=== PATIENT | female | born 1975 | race Caucasian/White ===

== ENCOUNTER 2017-02-03 16:19 | Emergency (ER) | payer OTHER ==
[2017-02-03 17:51] LABS: Hematocrit 37 % (35-47); Hemoglobin 12.2 g/dl (12.0-16.0); Mean Corpuscular HGB Conc 33 g/dl (31-36); Mean Corpuscular Hemoglobin 27 pg (27-31); Mean Corpuscular Volume 83 fL (80-97); Mean Platelet Volume 9 um3 (7.4-10.4); Red Blood Count 4.48 10^6/ul (4.0-5.4); Red Cell Distribution Width 16 % (10.5-15); White Blood Count 11.2 10^3/ul (3.5-10.8)
[2017-02-03 18:21] LABS: Albumin 4.1 g/dL (3.2-5.2); BUN/Creatinine Ratio 10.6 (8-20); Calcium 9.7 mg/dL (8.6-10.3); EGFR African American 75.5 (>60); EGFR Non-African American 58.7 (>60); Globulin 3.2 g/dL (2-4); Magnesium 2.1 mg/dL (1.9-2.7); Potassium 4.1 mmol/L (3.5-5.0); Total Bilirubin 0.5 mg/dL (0.2-1.0); Total Protein 7.3 g/dL (6.4-8.9)
--- NOTE | 2017-02-03 18:33 | RAD ---
HISTORY: Seizure COMPARISONS: None TECHNIQUE: Multiple contiguous axial CT scans were obtained of the head without intravenous contrast. FINDINGS: HEMORRHAGE/INFARCT: There is no hemorrhage or acute infarct. MASSES/SHIFT: There is no mass or shift. EXTRA-AXIAL SPACES: There are no extra-axial fluid collections. SULCI AND VENTRICLES: The sulci and ventricles are normal in size and position for the patient's stated age. CEREBRUM: There are no focal parenchymal abnormalities. BRAINSTEM: There are no focal parenchymal abnormalities. CEREBELLUM: There are no focal parenchymal abnormalities. VESSELS: The vessels are grossly normal. PARANASAL SINUSES: There is mucosal thickening of the left maxillary sinus. ORBITS: The orbits are unremarkable. BONES AND SOFT TISSUE: No bone or soft tissue abnormalities are noted. OTHER: None IMPRESSION: NO ACUTE INTRACRANIAL PATHOLOGY.
--- NOTE | 2017-02-03 18:54 | ED ---
Everardo Merino Alfonso scribed for Caridad Caicedo MD on 02/03/17 at 1704 . Complex/Multi-Sys Presentation - HPI Summary HPI Summary: This patient is a 41 year old F BIBA to [facility] accompanied by family with a chief complaint of a possible seizure approximately one hour ago while at [facility]. This was witnessed by her psychiatrist. She started a Wellbutrin prescription approximately 5 days ago. The patient rates the pain 0/10 in severity. Symptoms alleviated by spontaneous resolution. Patient reports a headache. Patient denies ETOH withdrawal and pain. - History Of Current Complaint Chief Complaint: EDSeizure Time Seen by Provider: 02/03/17 16:49 Hx Obtained From: Patient Onset/Duration: Sudden Onset, Resolved Timing: Constant Severity Currently: None Alleviating Factor(s): spontaneous resolution Associated Signs And Symptoms: Positive: Other - headache. Patient denies ETOH withdrawal and pain. - Allergies/Home Medications Allergies/Adverse Reactions: Allergies Allergy/AdvReac Type Severity Reaction Status Date / Time No Known Allergies Allergy Verified 02/03/17 16:23 PMH/Surg Hx/FS Hx/Imm Hx Endocrine/Hematology History: Denies: Hx Diabetes, Hx Thyroid Disease Cardiovascular History: Denies: Hx Hypertension Respiratory History: Denies: Hx Asthma, Hx Chronic Obstructive Pulmonary Disease (COPD) GI History: Denies: Hx Ulcer Psychiatric History: Reports: Hx Anxiety - Abilify, Hx Depression - Cymbalta, Hx Substance Abuse - hx hydrocodone and etoh abuse Infectious Disease History: No Infectious Disease History: Denies: Hx Hepatitis, Hx Human Immunodeficiency Virus (HIV), History Other Infectious Disease, Traveled Outside the [place] in Last 30 Days - Family History Known Family History: Negative: Hypertension, Diabetes - Social History Alcohol Use: None Substance Use Type: Reports: None Smoking Status (MU): Light Every Day Tobacco Smoker Type: Cigarettes Amount Used/How Often: 7-10 per day Length of Time of Smoking/Using Tobacco: 10 years Have You Smoked in the Last Year: Yes Review of Systems Negative: Fever Neurological: Other - Seizure, headache; negative ETOH withdrawal and pain All Other Systems Reviewed And Are Negative: Yes Physical Exam - Summary Physical Exam Summary: General: Well appearing, no pain distress Skin: Warm, Skin Color Reflects Adequate Perfusion, Dry Eyes: EOMI, BERNARDA ENT: Pharynx normal, TMs normal Neck: Supple, nontender Respiratory: CTA, breath sounds present, no rhonchi, no wheezes, no rales Cardiovascular: RRR, no murmur, no rub, no gallop Abdomen: Soft, nontender, Non-distended, no guarding, no rebound Bowel: Present Musculoskeletal: MAIRA, No edema Neuro: Sensory/motor intact, A&Ox3, CN intact 2-12 Psych: Affect/mood appropriate Triage Information Reviewed: Yes Vital Signs On Initial Exam: Initial Vitals Temp Pulse Resp BP Pulse Ox 98.0 F 126 16 105/95 100 02/03/17 16:20 02/03/17 16:20 02/03/17 16:20 02/03/17 16:20 02/03/17 16:20 Vital Signs Reviewed: Yes - [place] Coma Scale Best Eye Response: 4 - Spontaneous Best Motor Response: 6 - Obeys Commands Best Verbal Response: 5 - Oriented Coma Scale Total: 15 Diagnostics - Vital Signs Vital Signs Temp Pulse Resp BP Pulse Ox 02/03/17 16:23 128 95 02/03/17 16:22 150/95 02/03/17 16:20 98.0 F 126 16 105/95 100 - Laboratory Lab Results: Lab Results 02/03/17 02/03/17 Range/Units 17:39 17:39 WBC 11.2 H (3.5-10.8) 10^3/ul RBC 4.48 (4.0-5.4) 10^6/ul Hgb 12.2 (12.0-16.0) g/dl Hct 37 (35-47) % MCV 83 (80-97) fL MCH 27 (27-31) pg MCHC 33 (31-36) g/dl RDW 16 H (10.5-15) % Plt Count 258 (150-450) 10^3/ul MPV 9 (7.4-10.4) um3 Neut % (Auto) 77.7 (38-83) % Lymph % (Auto) 11.5 L (25-47) % [place] % (Auto) 6.2 (1-9) % Eos % (Auto) 3.9 (0-6) % Baso % (Auto) 0.7 (0-2) % Absolute Neuts (auto) 8.7 H (1.5-7.7) 10^3/ul Absolute Lymphs (auto) 1.3 (1.0-4.8) 10^3/ul Absolute Monos (auto) 0.7 (0-0.8) 10^3/ul Absolute Eos (auto) 0.4 (0-0.6) 10^3/ul Absolute Basos (auto) 0.1 (0-0.2) 10^3/ul Absolute Nucleated RBC 0 10^3/ul Nucleated RBC % 0 Sodium 136 (133-145) mmol/L Potassium 4.1 (3.5-5.0) mmol/L Chloride 103 (101-111) mmol/L Carbon Dioxide 25 (22-32) mmol/L Anion Gap 8 (2-11) mmol/L BUN 11 (6-24) mg/dL Creatinine 1.04 H (0.51-0.95) mg/dL Est GFR ( Amer) 75.5 (>60) Est GFR (Non-Af Amer) 58.7 (>60) BUN/Creatinine Ratio 10.6 (8-20) Glucose 101 H (70-100) mg/dL Calcium 9.7 (8.6-10.3) mg/dL Magnesium 2.1 (1.9-2.7) mg/dL Total Bilirubin 0.50 (0.2-1.0) mg/dL AST 20 (13-39) U/L ALT 18 (7-52) U/L Alkaline Phosphatase 70 (34-104) U/L Total Protein 7.3 (6.4-8.9) g/dL Albumin 4.1 (3.2-5.2) g/dL Globulin 3.2 (2-4) g/dL Albumin/Globulin Ratio 1.3 (1-3) Result Diagrams: 02/03/17 17:39 02/03/17 17:39 Lab Statement: Any lab studies that have been ordered have been reviewed, and results considered in the medical decision making process. - CT Brain CT Interpretation Completed By: Radiologist - NO ACUTE INTRACRANIAL PATHOLOGY. ED physician has reviewed this radiology report and agrees. - EKG 1721 Cardiac Rate: Tachycardia - BPM 107 EKG Rhythm: Sinus Tachycardia EKG Interpretation: NAC Re-Evaluation - Re-Evaluation First Eval Re-Evaluation Time: 17:36 Comment: She admits to having snorted her Wellbutrin. Complex Multi-Symp Course/Dx Course Of Treatment: 41 yo female who had a witnessed seizure today who admits to snorting her wellbutrin. Pt understands it is likely the welbutrin causing the seizure and that she needs to come off. close f/u with pmd - Diagnoses Provider Diagnoses: Seizure Discharge - Discharge Plan Condition: Stable Disposition: HOME Patient Education Materials: New-Onset Seizure in Adults (ED) Referrals: Bandar Olsen MD [Primary Care Provider] - 3 Days Additional Instructions: RETURN TO THE EMERGENCY DEPARTMENT FOR CHANGING OR WORSENING SYMPTOMS. STOP TAKING WELLBUTRIN. The documentation as recorded by the Everardo chavira Alfonso accurately reflects the service I personally performed and the decisions made by me, Caridad Caicedo MD.
[2017-02-03 19:34] VITALS: BP 134/86
== END 2017-02-03 19:42 | disposition home or self-care (01) ==
LOC: ED 16:19
DX: R56.9 Unspecified convulsions (principal); R51 Headache; F17.210 Nicotine dependence, cigarettes, uncomplicated
CPT/HCPCS: 36415; 70450; 80053; 83735; 85025; 93005; 99282

== ENCOUNTER 2017-08-18 17:42 | Emergency (ER) | payer OTHER ==
[2017-08-18 18:43] LABS: ABS Basophils 0 10^3/ul (0-0.2); ABS Eosinophils 0.2 10^3/ul (0-0.6); ABS Lymphocytes 1.7 10^3/ul (1.0-4.8); ABS Monocytes 0.8 10^3/ul (0-0.8); ABS Neutrophils 6.9 10^3/ul (1.5-7.7); ABS Nucleated RBC 0 10^3/ul; Eosinophil % 2.4 % (0-6); Hematocrit 36 % (35-47); Hemoglobin 12.2 g/dl (12.0-16.0); Lymphocyte % 17.2 % (25-47); Mean Corpuscular HGB Conc 34 g/dl (31-36); Mean Corpuscular Hemoglobin 28 pg (27-31); Mean Corpuscular Volume 84 fL (80-97); Mean Platelet Volume 8.5 um3 (7.4-10.4); Nucleated Red Blood Cells % 0.1; Platelet Count 250 10^3/ul (150-450); Red Blood Count 4.33 10^6/ul (4.0-5.4); Red Cell Distribution Width 17 % (10.5-15); White Blood Count 9.7 10^3/ul (3.5-10.8)
[2017-08-18 18:51] LABS: INR 1.01 (0.77-1.02)
[2017-08-18 19:00] LABS: EGFR Non-African American 53.6 (>60)
--- NOTE | 2017-08-18 19:22 | RAD ---
INDICATION: Seizure COMPARISON: CT brain February 03, 2017 TECHNIQUE: Noncontrast axial source images were acquired from the skull base to the vertex. FINDINGS: Ventricles/sulci: The ventricles and cisterns are normal in size and configuration for age. Brain parenchyma: There is no focal parenchymal finding, evidence of intracranial mass, or intracranial mass effect. Intracranial hemorrhage:None. Extra-axial spaces: There are no abnormal extra axial fluid collections or evidence of extra-axial mass. Calvarium: There is no calvarial fracture or other calvarial abnormality. Scalp: There is left frontal scalp hematoma. Paranasal sinuses/mastoid: The paranasal sinuses and mastoid air cells are clear. Other: None. IMPRESSION: LEFT FRONTAL SCALP HEMATOMA, OTHERWISE NEGATIVE.
--- NOTE | 2017-08-18 19:24 | RAD ---
INDICATION: Seizure. Possible neck injury COMPARISON: None TECHNIQUE: Noncontrast axial source images was performed from the skull base to the thoracic inlet. Coronal and and sagittal reformatted images were generated. FINDINGS: Vertebrae: There is no fracture or acute focal bony lesion. There are arthritic changes with anterior vertebral spurring and uncinate process spurring at C5-C7. There is also minor disc space narrowing at C5-C6 and C6-C7. Alignment: The craniocervical junction appears normal. The cervical vertebrae are normally aligned. Central Canal: There are no significant CT abnormalities of the central canal or foramina. There is minor bilateral foraminal encroachment at the C5-C7 levels MR imaging is a more sensitive method to evaluate the canal and foramina. Intervertebral disc spaces: The remaining disc spaces are maintained. Brain: The visualized brain appears unremarkable. Soft tissues: The visualized soft tissue elements of the neck are unremarkable. The prevertebral soft tissues appear normal. The lung apices are clear. IMPRESSION: MILD MID CERVICAL OSTEOARTHRITIC CHANGE, OTHERWISE NEGATIVE
[2017-08-18 19:25] LABS: Urine Appearance Clear; Urine Blood Negative (Negative); Urine Color Yellow; Urine Ketones Trace (Negative); Urine Protein 2+(100 mg/dL) (Negative); Urine Specific Gravity 1.027 (1.010-1.030); Urine Urobilinogen Negative (Negative)
--- NOTE | 2017-08-18 19:29 | RAD ---
INDICATION: Seizure. Facial injury COMPARISON: None TECHNIQUE: Axial source images were acquired from the vertex of the mandible through the orbits. Coronal and sagittal reconstructed images were acquired. FINDINGS: Bones: There are mildly displaced fractures of the anterior nasal bones. No other facial bone fractures are seen. Orbits: The globes and intraconal structures appear intact. The optic nerves are symmetric. Extraocular muscles appear normal. There is no intraconal inflammatory change or retrobulbar mass.. Paranasal sinuses: There is lobular and/or circumferential mucosal thickening involving the left and right maxillary antrum. There is opacification of multiple ethmoid air cells. There is minor mucosal thickening involving the frontal air cells. There is occlusion left ostial complex with mild swelling of nasal turbinates. There are no air-fluid levels. The findings are compatible with mild chronic sinusitis. Brain: There are no acute abnormalities of the visualized brain parenchyma. Soft tissues: There is left frontal scalp hematoma. Other: None The visualized soft tissue elements about the neck appear normal. IMPRESSION: 1. Mildly displaced fractures of the anterior nasal bones. 2. Findings of chronic sinusitis. 3. Left frontal scalp hematoma
[2017-08-18] MEDS ORDERED: Amoxicillin PO (*) 875 MG TAB PO ONE (21:03)
[2017-08-18] MEDS ORDERED: Tetan/Diph/Pertus SYR(Tdap)* 0.5 ML SYR(BOOSTRIX) use SYR IM ONE (21:30)
[2017-08-18] MEDS ORDERED: Mupirocin 2% OINT* TUBE TOPICAL SCH (21:30)
--- NOTE | 2017-08-18 21:38 | ED ---
Willem Merino Jennifer, scribed for Vasu Davila MD on 08/18/17 at 1812 . 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 The patients states they were in the [employer] when she suddenly fell on her face. When he picked her up she began seizing, and it lasted for about one minute. The patient states there was LOC. The patient complains of face pain, back pain, and neck pain. She denies dental pain, arm pain, and leg pain. - History of Current Complaint Chief Complaint: EDSeizure Stated Complaint: FALL Time Seen by Provider: 08/18/17 18:03 Hx Obtained From: Patient, Family/Edge Inker - Hx Last Menstrual Period: HAS PERIOD NOW Onset/Duration: Sudden Onset, Resolved, Other - OPERATIONS CONTROLLER Timing: Sudden Onset - one minute Onset Severity: Moderate Current Severity: None Seizure Severity: Moderate Neurological Deficit Location: Generalized Pain Intensity: 6 Pain Scale Used: 0-10 Numeric Character: Other: - face pain, back pain, neck pain. NEGATIVE: dental pain, arm pain, leg pain Syncope Context: Witnessed, Loss of Consciousness: Yes, Associated Head Trauma Seizure Character: Generalized Aggravating: Nothing Alleviating: Nothing Associated Signs and Symptoms: Positive: Negative - dental, arm, and leg pain, Pain - neck and back pain - Allergy/Home Medications Allergies/Adverse Reactions: Allergies Allergy/AdvReac Type Severity Reaction Status Date / Time No Known Allergies Allergy Verified 02/03/17 16:23 Home Medications: Home Medications Gabapentin CAP(*) [Neurontin 400 mg CAP(*)] 800 mg PO QID 08/18/17 [History Confirmed 08/18/17] Lurasidone(*) [Latuda] 40 mg PO QPM 08/18/17 [History Confirmed 08/18/17] buPROPion SR TAB* [Wellbutrin SR TAB*] 150 mg PO BID 08/18/17 [History Confirmed 08/18/17] PMH/Surg Hx/FS Hx/Imm Hx Endocrine/Hematology History: Denies: Hx Diabetes, Hx Thyroid Disease Cardiovascular History: Denies: Hx Hypertension Respiratory History: Denies: Hx Asthma, Hx Chronic Obstructive Pulmonary Disease (COPD) GI History: Denies: Hx Ulcer Psychiatric History: Reports: Hx Anxiety - Abilify, Hx Depression - Cymbalta, Hx Substance Abuse - hx hydrocodone and etoh abuse Infectious Disease History: No Infectious Disease History: Denies: Hx Hepatitis, Hx Human Immunodeficiency Virus (HIV), History Other Infectious Disease, Traveled Outside the [place] in Last 30 Days - Family History Known Family History: Negative: Hypertension, Diabetes - Social History Alcohol Use: None Alcohol Amount: stopped April Substance Use Type: Reports: None Substance Use Comment - Amount & Last Used: snorts wellbutrin, crack pipe noted in bra Smoking Status (MU): Light Every Day Tobacco Smoker Type: Cigarettes Amount Used/How Often: 7-10 per day Length of Time of Smoking/Using Tobacco: 10 years Have You Smoked in the Last Year: Yes Review of Systems Negative: Dental Pain Musculoskeletal: Negative - Arm and leg pain Positive: Myalgia - face pain, back pain, neck pain Positive: Other - laceration on forehead Neurological: Other - Seizure, LOC All Other Systems Reviewed And Are Negative: Yes Physical Exam - Summary Physical Exam Summary: General: well-appearing, no pain distress Skin: warm, color reflects adequate perfusion, dry Head: 2cm laceration on the medial aspect of the upper left orbit Eyes: EOMI, BERNARDA ENT: normal Neck: supple, nontender Respiratory: CTA, breath sounds present Cardiovascular: RRR Abdomen: soft, nontender Bowel: present Musculoskeletal: normal, strength/ROM intact Neurological: sensory/motor intact, A&O x3 Psychological: affect/mood appropriate Triage Information Reviewed: Yes Vital Signs On Initial Exam: Initial Vitals Temp Pulse Resp BP Pulse Ox 97.7 F 110 20 148/104 96 08/18/17 17:59 08/18/17 17:59 08/18/17 17:59 08/18/17 17:59 08/18/17 17:59 Vital Signs Reviewed: Yes Procedures - Laceration/Wound Repair 1 Location: head Description: Linear Anesthesia: 1.0%, Lido Length, Depth and Shape: 2cm laceration on the medial aspect of the upper left orbit Betadine Prep?: No Laceration/Wound Explored: clean Suture Type: Chromic - 6-0 Proline Number of Sutures: 3 Sterile Dressing Applied?: Yes Diagnostics - Vital Signs Vital Signs Temp Pulse Resp BP Pulse Ox 08/18/17 17:59 97.7 F 110 20 148/104 96 - Laboratory Lab Results: Lab Results 08/18/17 08/18/17 08/18/17 Range/Units 18:32 18:32 18:34 WBC 9.7 (3.5-10.8) 10^3/ul RBC 4.33 (4.0-5.4) 10^6/ul Hgb 12.2 (12.0-16.0) g/dl Hct 36 (35-47) % MCV 84 (80-97) fL MCH 28 (27-31) pg MCHC 34 (31-36) g/dl RDW 17 H (10.5-15) % Plt Count 250 (150-450) 10^3/ul MPV 8.5 (7.4-10.4) um3 Neut % (Auto) 71.4 (38-83) % Lymph % (Auto) 17.2 L (25-47) % [place] % (Auto) 8.6 H (0-7) % Eos % (Auto) 2.4 (0-6) % Baso % (Auto) 0.4 (0-2) % Absolute Neuts (auto) 6.9 (1.5-7.7) 10^3/ul Absolute Lymphs (auto) 1.7 (1.0-4.8) 10^3/ul Absolute Monos (auto) 0.8 (0-0.8) 10^3/ul Absolute Eos (auto) 0.2 (0-0.6) 10^3/ul Absolute Basos (auto) 0 (0-0.2) 10^3/ul Absolute Nucleated RBC 0 10^3/ul Nucleated RBC % 0.1 INR (Anticoag Therapy) 1.01 (0.77-1.02) APTT 21.2 L (26.0-36.3) seconds Sodium 137 L (139-145) mmol/L Potassium 4.0 (3.5-5.0) mmol/L Chloride 107 (101-111) mmol/L Carbon Dioxide 23 (22-32) mmol/L Anion Gap 7 (2-11) mmol/L BUN 13 (6-24) mg/dL Creatinine 1.12 H (0.51-0.95) mg/dL Est GFR ( Amer) 68.9 (>60) Est GFR (Non-Af Amer) 53.6 (>60) BUN/Creatinine Ratio 11.6 (8-20) Glucose 112 H (70-100) mg/dL Calcium 9.0 (8.6-10.3) mg/dL Magnesium 2.1 (1.9-2.7) mg/dL Total Bilirubin 0.30 (0.2-1.0) mg/dL AST 33 (13-39) U/L ALT 20 (7-52) U/L Alkaline Phosphatase 61 (34-104) U/L Total Protein 7.1 (6.4-8.9) g/dL Albumin 4.2 (3.2-5.2) g/dL Globulin 2.9 (2-4) g/dL Albumin/Globulin Ratio 1.4 (1-3) Lipase 15 (11.0-82.0) U/L TSH 2.57 (0.34-5.60) mcIU/mL Beta HCG, Quant < 0.60 mIU/mL Urine Color Urine Appearance Urine pH (5-9) Ur Specific [place] (1.010-1.030) Urine Protein (Negative) Urine Ketones (Negative) Urine Blood (Negative) Urine Nitrate (Negative) Urine Bilirubin (Negative) Urine Urobilinogen (Negative) Ur Leukocyte Esterase (Negative) Urine WBC (Auto) (Absent) Urine RBC (Auto) (Absent) Ur Squamous Epith Cells (Absent) Urine Bacteria (Absent) Hyaline Casts (Absent) Urine Glucose (Negative) Urine Ascorbic Acid (Negative) Salicylates < 2.50 (<30) mg/dL Urine Opiates Screen (None Detect) Acetaminophen < 15 mcg/mL Ur Barbiturates Screen (None Detect) Ur Phencyclidine Scrn (None Detect) Ur Amphetamines Screen (None Detect) U Benzodiazepines Scrn (None Detect) Urine Cocaine Screen (None Detect) U Cannabinoids Screen (None Detect) Serum Alcohol < 10 (<10) mg/dL 08/18/17 08/18/17 Range/Units 19:06 19:06 WBC (3.5-10.8) 10^3/ul RBC (4.0-5.4) 10^6/ul Hgb (12.0-16.0) g/dl Hct (35-47) % MCV (80-97) fL MCH (27-31) pg MCHC (31-36) g/dl RDW (10.5-15) % Plt Count (150-450) 10^3/ul MPV (7.4-10.4) um3 Neut % (Auto) (38-83) % Lymph % (Auto) (25-47) % [place] % (Auto) (0-7) % Eos % (Auto) (0-6) % Baso % (Auto) (0-2) % Absolute Neuts (auto) (1.5-7.7) 10^3/ul Absolute Lymphs (auto) (1.0-4.8) 10^3/ul Absolute Monos (auto) (0-0.8) 10^3/ul Absolute Eos (auto) (0-0.6) 10^3/ul Absolute Basos (auto) (0-0.2) 10^3/ul Absolute Nucleated RBC 10^3/ul Nucleated RBC % INR (Anticoag Therapy) (0.77-1.02) APTT (26.0-36.3) seconds Sodium (139-145) mmol/L Potassium (3.5-5.0) mmol/L Chloride (101-111) mmol/L Carbon Dioxide (22-32) mmol/L Anion Gap (2-11) mmol/L BUN (6-24) mg/dL Creatinine (0.51-0.95) mg/dL Est GFR ( Amer) (>60) Est GFR (Non-Af Amer) (>60) BUN/Creatinine Ratio (8-20) Glucose (70-100) mg/dL Calcium (8.6-10.3) mg/dL Magnesium (1.9-2.7) mg/dL Total Bilirubin (0.2-1.0) mg/dL AST (13-39) U/L ALT (7-52) U/L Alkaline Phosphatase (34-104) U/L Total Protein (6.4-8.9) g/dL Albumin (3.2-5.2) g/dL Globulin (2-4) g/dL Albumin/Globulin Ratio (1-3) Lipase (11.0-82.0) U/L TSH (0.34-5.60) mcIU/mL Beta HCG, Quant mIU/mL Urine Color Yellow Urine Appearance Clear Urine pH 5.0 (5-9) Ur Specific [place] 1.027 (1.010-1.030) Urine Protein 2+(100 mg/dl) A (Negative) Urine Ketones Trace A (Negative) Urine Blood Negative (Negative) Urine Nitrate Negative (Negative) Urine Bilirubin Negative (Negative) Urine Urobilinogen Negative (Negative) Ur Leukocyte Esterase Negative (Negative) Urine WBC (Auto) Absent (Absent) Urine RBC (Auto) Absent (Absent) Ur Squamous Epith Cells Present A (Absent) Urine Bacteria Absent (Absent) Hyaline Casts Present A (Absent) Urine Glucose Negative (Negative) Urine Ascorbic Acid * A (Negative) Salicylates (<30) mg/dL Urine Opiates Screen None detected (None Detect) Acetaminophen mcg/mL Ur Barbiturates Screen None detected (None Detect) Ur Phencyclidine Scrn None detected (None Detect) Ur Amphetamines Screen Presumptive positive A (None Detect) U Benzodiazepines Scrn None detected (None Detect) Urine Cocaine Screen None detected (None Detect) U Cannabinoids Screen None detected (None Detect) Serum Alcohol (<10) mg/dL Result Diagrams: 08/18/17 18:32 08/18/17 18:34 Lab Statement: Any lab studies that have been ordered have been reviewed, and results considered in the medical decision making process. - CT Brain CT CT Interpretation: No Acute Changes - LEFT FRONTAL SCALP HEMATOMA, OTHERWISE NEGATIVE. Dr. Davila has reviewed this report. CT Interpretation Completed By: Radiologist C-Spine CT CT Interpretation: No Acute Changes - MILD MID CERVICAL OSTEOARTHRITIC CHANGE, OTHERWISE NEGATIVE. Dr. Davila has reviewed this report. CT Interpretation Completed By: Radiologist Maxillofacial CT CT Interpretation: Positive (See Comments) - 1. Mildly displaced fractures of the anterior nasal bones. 2. Findings of chronic sinusitis. 3. Left frontal scalp hematoma. Dr. Davila has reviewed this report. CT Interpretation Completed By: Radiologist - EKG 1833 Cardiac Rate: Tachycardia EKG Rhythm: Sinus Tachycardia - [address] Segment: Normal Ectopy: None Course/Dx - Course Course Of Treatment: I DISCUSSED KEEPING THE FACIAL LACERATION AND ABRASION MOIST WITH ANTIBIOTIC OINTMENT TO MINIMIZE SCARRING. RX AMOX DUE TO NASAL FXR. DISCUSSED RESULTS WITH THE PATIENT AND FAMILY. WE DISCUSSED SEEING HER PMD TO CHANGE HER ANTIDEPRESSANT MEDICATION; TO STOP WELLBUTRIN TO MINIMIZE THE RISK OF HER HAVING ANOTHER SEIZURE BY SNORTING THE WELLBUTRIN. F/U PMD ( CHANGING OFF THE WELLBUTRIN), ENT (NASAL FXR) AND PLASTICS (FACIAL ABRASION); RETURN IF WORSE. - Diagnoses Provider Diagnoses: Seizure, Head injury, Nasal bone fracture, Facial laceration, Facial abrasion Discharge - Sign-Out/Discharge Documenting (check all that apply): Discharge/Admit/Transfer - Discharge Plan Condition: Stable Disposition: HOME Prescriptions: Amoxicillin PO (*) [Amoxicillin 875 MG (*)] 875 mg PO BID #20 tab Mupirocin 2% OINT* [Bactroban 2 % Oint*] 1 applic TOPICAL BID #30 grams Patient Education Materials: Care For Your Stitches (ED), Head Injury (ED), Abrasion (ED), New-Onset Seizure in Adults (ED), Facial Laceration (ED) Forms: *Work Release Referrals: Bandar Olsen MD [Primary Care Provider] - Jay Urena MD [Medical Doctor] - Aman Newberry MD [Medical Doctor] - [facility] [Provider Group] Additional Instructions: FOLLOW UP WITH YOUR PRIMARY CARE DOCTOR TO DISCUSS STOPPING WELLBUTRIN. SUTURES OUT IN 5 DAYS WITH YOUR PRIMARY CARE DOCTOR OR PLASTIC SURGERY. IF POSSIBLE, FOLLOW UP WITH PLASTIC SURGERY FOR YOUR FACIAL ABRASION. FOLLOW UP WITH ENT FOR YOUR NASAL FRACTURE AND TAKE THE AMOXICILLIN DIRECTED. KEEP THE ABRASION AND LACERATION MOIST WITH ANTIBIOTIC OINTMENT TO MINIMIZE SCARRING. RETURN TO THE EMERGENCY DEPARTMENT FOR ANY WORSENING OF YOUR CONDITION OR QUESTIONS OR CONCERNS. - Billing Disposition and Condition Condition: STABLE Disposition: HOME The documentation as recorded by the Willem chavira Jennifer accurately reflects the service I personally performed and the decisions made by me, Vasu Davila MD.
[2017-08-18 22:01] VITALS: BP 158/94
== END 2017-08-18 22:00 | disposition home or self-care (01) ==
LOC: ED 17:42
DX: G40.909 Epilepsy, unspecified, not intractable, without status epilepticus (principal); S02.2XXA Fracture of nasal bones, initial encounter for closed fracture; S01.81XA Laceration without foreign body of other part of head, initial encounter; S00.83XA Contusion of other part of head, initial encounter; F41.9 Anxiety disorder, unspecified; F32.9 Major depressive disorder, single episode, unspecified; F17.210 Nicotine dependence, cigarettes, uncomplicated; S05.42XA Penetrating wound of orbit with or without foreign body, left eye, initial encounter; J32.9 Chronic sinusitis, unspecified; Y92.59 Other trade areas as the place of occurrence of the external cause; W19.XXXA Unspecified fall, initial encounter
CPT/HCPCS: 12011; 36415; 70450; 70486; 72125; 80053; 80307; 80320; 80329; 81003; 81015; 83690; 83735; 84443; 84702; 85025; 85610; 85730; 90471; 90715; 93005; 99283; G0480

== ENCOUNTER 2017-09-30 10:36 | Day surgery (SDC) | payer OTHER ==
[~2017-09-30 10:36] MED LIST: Buffered Lidocaine 0.9% SYRIN* 5 ML/SYR SYRINGE INTRADERM ONE; Naloxone* 0.4 MG/ML 1 ML VIAL IV PRN; Ondansetron 40 MG VIAL* 2 MG/ML 20 ML VIAL ONE; Ondansetron INJ* 2 MG/ML VIAL IV PRN; ceFAZolin 2 GM PREMIX (*) 2 GM/50 ML BAG IVPB ONE
[2017-09-30] MEDS ORDERED: fentaNYL* 50 MCG/ML 2 ML VIAL (100 MCG VIAL) ONE (11:12)
[2017-09-30] MEDS ORDERED: Midazolam* 1 MG/ML 2 ML VIAL (2 MG) ONE (11:12)
[2017-09-30] MEDS ORDERED: ROPIVACAINE 5 MG/ML 30 ML BTL (0.5%) ONE (11:13)
[2017-09-30] MEDS ORDERED: Dexamethasone IV* 4 MG/ML 1 ML (4 MG) ONE (11:52)
[2017-09-30] MEDS ORDERED: Propofol* 10 MG/ML 20 ML BTL IV PUSH ONE (11:52)
[2017-09-30] MEDS ORDERED: Lidocaine 2% PF * 5 ML VIAL ONE (11:52)
[2017-09-30 14:04] VITALS: BP 122/72
--- NOTE | 2017-10-01 18:15 | RAD ---
INDICATION: ORIF RIGHT wrist Technique: 44 seconds of?fluoroscopy?was provided?for the physician proceduralist. REPORT: Spot images document placement of a volar cortical plate bridging the comminuted distal radius fracture IMPRESSION: Procedural control films. CPT II Codes: G9500
--- NOTE | 2017-10-05 03:47 | OP ---
DATE OF OPERATION: 09/30/17 - [facility] DATE OF : 77 SURGEON: Jesse Mcmillan MD ROLLER BEARING INSPECTOR: YANE Huff. An hr administrative assistant was needed for the procedure to aid in positioning of the arm and retraction. ANESTHESIOLOGIST: Kaylen Bangura MD ANESTHESIA: Supraclavicular block with general. PRE-OP DIAGNOSIS: Right displaced intraarticular, 3-fragment distal radius fracture. POST-OPERATIVE DIAGNOSIS: Right displaced intraarticular, 3-fragment distal radius fracture. OPERATIVE PROCEDURE: Open reduction internal fixation, right intraarticular, 3 - fragment distal radius fracture. INDICATIONS: Layla is 42. She has a displaced right distal radius fracture with dorsal tilt and dorsal impaction. Post reduction x-rays showed persistent malalignment. I talked to her about the need to better align the wrist. She wanted to proceed with surgery. I talked about the risks of the surgery including risk of stiffness, risk of persistent pain, malunion, nonunion, infection, neurovascular injury. She wants to proceed. ESTIMATED BLOOD LOSS: 2 mL. COMPLICATIONS: None. FINDINGS: As expected. DESCRIPTION OF PROCEDURE: Layla was seen in the preoperative holding area. The correct side, site, and procedure were identified. We came back to the operating room, the arm was prepped and draped in the usual fashion. A time- out was performed. A block had been done previously. I exsanguinated the arm with the Esmarch and the tourniquet was inflated to 250 mmHg. I then made a longitudinal incision over the distal FCR tendon that was brought back obliquely just past the wrist flexion crease distally. Dissection was carried down. The FCR tendon sheath was released. The tendon was retracted ulnarly. The subsheath was released. The perforators of the radial artery were cauterized. The pronator quadratus was exposed. This was released off its radial margin and T'd back transversely distally preserving the distal 3 or 4 mm of capsular ligament. The fracture line was debrided of its soft tissue. The interposed hematoma and disorganized tissue was debrided and excised. I had the arm in 10 pounds of inline traction using the Arthrex hand wu. I performed a closed reduction maneuver and I then brought in my Synthes variable angle distal radius plate and pinned this in the appropriate location with the fracture reduced. The alignment of the plate was confirmed on fluoroscopy. I then placed 1 screw in the oblong hole proximally. I then placed locking screws in the ulnar most three holes of the plate distally. These were 2.4-mm locking screws. The radial styloid screw was a variable angle locking screw, aim towards the tip of the radial styloid. The arm was then let out of traction and fluoroscopic imaging showed excellent alignment and excellent reduction. The final two cortical screws were placed proximally. These were all 2.4-mm cortical screws proximally. At this point, final fluoroscopic imaging showed good alignment and congruence of the articular surface. There were multiple metaphyseal fragments; it was a very comminuted fracture through the metaphysis, but these were all bridged nicely in good alignment. Things were looking good at this point. So, we irrigated out the wound. The pronator was reapproximated with 3-0 Vicryl. Skin was closed with 3 -0 Monocryl and Steri-Strips. The wounds were dressed with 4x4, sterile Webril , and a cock-up wrist splint was applied. The tourniquet was deflated. Had been used to 250 mmHg throughout the case. The hand pinked up immediately. She was taken to the recovery room in stable condition. [id number]/[facility] #: [id number] MTDD
== END 2017-09-30 14:06 | disposition home or self-care (01) ==
LOC: OREAST 10:36
PROVIDERS: ATTEND Orthopaedic Surgery Hand Surgery
DX: S52.571A Other intraarticular fracture of lower end of right radius, initial encounter for closed fracture (principal); Z72.0 Tobacco use; K21.9 Gastro-esophageal reflux disease without esophagitis; F41.8 Other specified anxiety disorders; G40.89 Other seizures; W19.XXXA Unspecified fall, initial encounter; Y92.9 Unspecified place or not applicable; G89.18 Other acute postprocedural pain
CPT/HCPCS: 76000; 81025; C1713; C1776; J0690; J1100; J2250; J2405; J2704; J2795; J3010

== ENCOUNTER 2017-10-16 17:24 | Emergency (ER) | payer OTHER ==
--- OUTSIDE RECORDS SUMMARY | 2017-10-16 17:43 | XMS REPORT ---
:1975 External Reference #:[id number] Author Organization [employer] Address [address] [place] [address] [place] [address] Phone [phone] Care Team Providers Name Role Phone Bandar Olsen MD Primary Care Physician Unavailable Payers Type Date Identification Numbers Payment Provider Subscriber Commercial Policy Number: [id number] [employer] Layla Arreguin PayID: [id number] [address] [place] [phone] Problems Date Description Provider Status Onset: 09/24/2017 Closed fracture of distal end of radius Jesse Mcmillan MD Active Family History Date Family Member(s) Problem(s) Comments General Hypertension General Rheumatoid Arthritis Social History Type Date Description Comments Lives With Family Occupation Retail ETOH Use Occasionally consumes alcohol Smoking Light tobacco smoker (10 or fewer cigarettes/day) Exercise Type/Frequency Exercises regularly Allergies, Adverse Reactions, Alerts Date Description Reaction Status Severity Comments 09/24/2017 NKDA active Medications Medication Date Status Form Strength Qnty SIG Indications Ordering Provider Duloxetine HCL Active Caps DR 30mg Ismael Garcia Part MD Maynor Aripiprazole Active Tablets 5mg Take 1 Unknown 000 Tablet By Mouth Every Day Gabapentin 0 Active Tablets 800mg Ismael Garcia MD Vital Signs Date Vital Result Comment 09/24/2017 Height 68 inches 5'8" Weight 198.12 lb Heart Rate 70 /min BP Systolic 138 mmHg BP Diastolic 76 mmHg Respiratory Rate 12 /min Body Temperature 97.7 F Pain Level 8 BMI (Body Mass Index) 30.1 kg/m2 Results Description No Information Procedures Date CPT Code Description Status 09/24/2017 93718 Short Arm Splint Application Completed Encounters Type Date Location Provider CPT E/M Dx Office Visit 09/24/2017 [place] [address] S52.571A 10:45a [facility] Plan of Care Future Appointment(s):10/13/2017 11:15 am - Jesse Mcmillan MD at [facility].09/24/2017 - Jesse Mcmillan [id number] Oth intartic fracture of lower end of right radius, initFollow up:Follow up: 10-14 days postop
--- OUTSIDE RECORDS SUMMARY | 2017-10-16 17:43 | XMS REPORT ---
:1975 External Reference #:[id number] Author Organization [employer] Address [address] [place] [address] Phone [phone] Care Team Providers Name Role Phone Bandar Olsen MD Primary Care Physician Unavailable Payers Type Date Identification Numbers Payment Provider Subscriber Commercial Policy Number: [id number] [employer] Layla Arreguin PayID: [id number] [address] [place] [address] Problems Date Description Provider Status Onset: 09/24/2017 [...] Provider Duloxetine HCL Active Caps DR 30mg 1 tab Radha, 000 Part daily MD Manyor Aripiprazole Active Tablets 5mg Take 1 Unknown 000 Tablet By Mouth Every Day Gabapentin Active Tablets 800mg 1 tab Radha, 000 four MD Maynor times daily Hydrocodone-Sarath Hx Tablets 5-325mg 20tabs 1 or 2 Jesse taminophen 018 - tabs by MD Deyanira mouth 018 every 6-8 hours as needed for pain Tramadol HCL Hx Tablets 50mg 30tabs 1-2 Jesse 018 - tablets MD Deyanira by mouth 018 every 6 hours as needed pain Vital Signs Date Vital Result Comment 10/13/2017 Height 68 inches 5'8" Body Temperature 98.0 F Pain Level 3 10/08/2017 Height 68 inches 5'8" Weight 198.00 lb Heart Rate 85 /min BP Systolic Sitting 142 mmHg BP Diastolic Sitting 82 mmHg Respiratory Rate 18 /min Pain Level 8 BMI (Body Mass Index) 30.1 kg/m2 09/24/2017 Height 68 inches 5'8" Weight 198.12 lb Heart Rate 70 /min BP Systolic 138 mmHg BP Diastolic 76 mmHg Respiratory Rate 12 /min Body Temperature 97.7 F Pain Level 8 BMI (Body Mass Index) 30.1 kg/m2 Results Description No Information Procedures Date CPT Code Description Status 10/13/2017 70918 Short Arm Cast Application Completed 10/08/2017 18912 Short Arm Splint Application Completed 09/30/2017 26749 Open TX Of Distal Radial Intra-Articular FX Or Completed Epiphyseal Septn 09/24/2017 99704 Short Arm Splint Application Completed Encounters Type Date Location Provider CPT E/M Dx Office Visit 09/24/2017 [place] [address] S52.571A 10:45a [facility] Plan of Care Future Appointment(s):10/25/2017 1:45 pm - Stalin Tenorio M.D. at [facility] AT [id number]/11/2018 - Jesse Mcmillan [id number] Oth intartic fx low end r rad, subs for clos fx w routn healNew Xrays:Wrist Right 3+ VWSFollow up:Follow up: 2 weeks
[2017-10-16 17:48] VITALS: BP 142/90
[2017-10-16] MEDS ORDERED: Lidocaine 1% INJ* 10 MG/ML 30 ML SDV INJ ONE (18:05)
--- NOTE | 2017-10-16 18:05 | UC ---
Upper Extremity HPI - HPI Summary HPI Summary: fell in bathroom sustaining laceration of the right axilla - History of Current Complaint Chief Complaint: UCLaceration Stated Complaint: RIGHT ARMPIT LAC Time Seen by Provider: 10/16/17 17:43 Hx Obtained From: Patient Hx Last Menstrual Period: 09/25/17 Onset/Duration: Sudden Onset Severity Initially: Moderate Severity Currently: Moderate Pain Intensity: 6 Location Of Pain: Is Discrete @ Character: Sharp Aggravating Factor(s): Movement Alleviating Factor(s): Rest Associated Signs And Symptoms: Positive: Negative - Risk Factors Non-Orthopedic Risk Factor: Negative DVT Risk Factors: Negative Septic Arthritis Risk Factor: Negative - Allergies/Home Medications Allergies/Adverse Reactions: Allergies Allergy/AdvReac Type Severity Reaction Status Date / Time No Known Allergies Allergy Verified 10/16/17 17:49 PMH/Surg Hx/FS Hx/Imm Hx Previously Healthy: Yes Other Psychological History: hx .of depression. drug abuse in the past - Surgical History Surgical History: Yes Surgery Procedure, Year, and Place: nose procedure done when 17 years old. right arm, fracture - Family History Known Family History: Negative: Hypertension, Diabetes - Social History Alcohol Use: None Alcohol Amount: stopped April Substance Use Type: None Substance Use Comment - Amount & Last Used: snorts wellbutrin, crack pipe noted in bra Smoking Status (MU): Light Every Day Tobacco Smoker Type: Cigarettes Amount Used/How Often: 1/3 ppd smoked off and on for approx 14 years Length of Time of Smoking/Using Tobacco: 10 years Have You Smoked in the Last Year: Yes Household Exposure Type: Cigarettes - Immunization History Most Recent Influenza Vaccination: 02/19/15 Most Recent Tetanus Shot: 07/01/2015 Most Recent Pneumonia Vaccination: never Review of Systems Constitutional: Negative Skin: Negative Eyes: Negative ENT: Negative Respiratory: Negative Cardiovascular: Negative Gastrointestinal: Negative Genitourinary: Negative Musculoskeletal: Other: - s/p fractured wrist All Other Systems Reviewed And Are Negative: Yes Physical Exam Triage Information Reviewed: Yes Appearance: Well-Appearing Vital Signs: Initial Vital Signs Temp 37.7 C 10/16/17 17:43 Pulse 107 10/16/17 17:43 Resp 16 10/16/17 17:43 BP 142/90 10/16/17 17:43 Pulse Ox 98 10/16/17 17:43 Vital Signs Reviewed: Yes Eye Exam: Normal Eyes: Positive: Conjunctiva Clear ENT Exam: Normal Dental Exam: Normal Neck exam: Normal Musculoskeletal Exam: Normal - full rom of the right shoulder Neurological: Positive: Alert Skin: Positive: Other - laceration 3.5 cm in length, no significant bleeding Upper Extremity Course/Dx - Differential Dx/Diagnosis Provider Diagnoses: laceration right axilla Discharge - Sign-Out/Discharge Documenting (check all that apply): Patient Departure - Discharge Plan Condition: Fair Disposition: HOME Patient Education Materials: Care For Your Stitches (ED) Referrals: Bandar Olsen MD [Primary Care Provider] - - Billing Disposition and Condition Condition: FAIR Disposition: Home
[2017-10-16] MEDS ORDERED: Lidocaine 1%* 5 ML VIAL ONE (18:09)
== END 2017-10-16 18:33 | disposition home or self-care (01) ==
LOC: UCCORT 17:24
DX: S41.111A Laceration without foreign body of right upper arm, initial encounter (principal); F17.210 Nicotine dependence, cigarettes, uncomplicated; W19.XXXA Unspecified fall, initial encounter; Y92.091 Bathroom in other non-institutional residence as the place of occurrence of the external cause
CPT/HCPCS: 12002; 99211; G0463

== ENCOUNTER 2017-10-25 10:22 | Emergency (ER) | payer OTHER ==
--- OUTSIDE RECORDS SUMMARY | 2017-10-25 10:30 | XMS REPORT ---
:1975 External Reference #:[id number] Author Organization [employer] Address [address] [place] [address] [place] [address] Phone [phone] Care Team Providers Name Role Phone Bandar Olsen MD Primary Care Physician Unavailable Payers Type Date Identification Numbers Payment Provider Subscriber Commercial Policy Number: [id number] [employer] Layla Arreguin PayID: [id number] [address] [place] [address] Problems Date Description Provider Status Onset: 09/24/2017 [...] 1 tab Radha, 000 Part daily MD Maynor Aripiprazole Active Tablets 5mg Take [...] pain Vital Signs Date Vital Result Comment 10/25/2017 Height 68 inches 5'8" Weight 198.00 lb BP Systolic Sitting 118 mmHg BP Diastolic Sitting 76 mmHg Respiratory Rate 16 /min Pain Level 0 BMI (Body Mass Index) 30.1 kg/m2 10/13/2017 Height 68 inches 5'8" Body Temperature [...] Procedures Date CPT Code Description Status 10/13/2017 02635 Short Arm Cast Application Completed 10/08/2017 22448 Short Arm Splint Application Completed 09/30/2017 99148 Open TX Of Distal Radial Intra-Articular FX Or Completed Epiphyseal Septn 09/30/2017 68798 Open TX Of Distal Radial Intra-Articular FX Or Completed Epiphyseal Septn 09/24/2017 05699 Short Arm Splint Application Completed Encounters Type Date Location Provider CPT E/M Dx Office Visit 09/24/2017 [place] [address] S52.571A 10:45a [facility] Plan of Care Future Appointment(s):12/14/2017 9:15 am - Jesse Mcmillan MD at [facility]10/25/2017 - Stalin Tenorio M.D.[id number] Ot intartic fx low end r rad, subs for clos fx w routn healNew Xrays:Wrist Right 3+ VWSNew Therapy: Physical TherapyFollow up:Follow up: 4-[address] Mcmillan Use the wrist brace OK to start light use of the right hand OK to start moving the right wrist out of the splint
[2017-10-25 10:45] VITALS: BP 136/90
--- NOTE | 2017-10-25 11:23 | UC ---
Skin Complaint HPI - HPI Summary HPI Summary: laceration in right axilla-sutured 9 days ago poor wound approximation, painful no fevers or streaking - History of Current Complaint Chief Complaint: UCLaceration Time Seen by Provider: 10/25/17 11:11 Stated Complaint: RE-CHECK /SUTURE REMOVAL Hx Obtained From: Patient Hx Last Menstrual Period: 09/25/17 ?: No Onset/Duration: Sudden Onset, Lasting Days - 9, Still Present, Worse Since - 4- 5 days Pain Intensity: 5 Pain Scale Used: 0-10 Numeric Location: Discrete Aggravating Factor(s): Nothing Alleviating Factor(s): Nothing Associated Signs & Symptoms: Positive: Tenderness - Allergy/Home Medications Allergies/Adverse Reactions: Allergies Allergy/AdvReac Type Severity Reaction Status Date / Time No Known Allergies Allergy Verified 10/25/17 10:42 Review of Systems Constitutional: Negative Skin: Other - right axilla poorly healing wound Eyes: Negative ENT: Negative Respiratory: Negative Cardiovascular: Negative Gastrointestinal: Negative Genitourinary: Negative Motor: Negative Neurovascular: Negative Musculoskeletal: Negative Neurological: Negative Psychological: Negative Is Patient Immunocompromised?: No All Other Systems Reviewed And Are Negative: Yes PMH/Surg Hx/FS Hx/Imm Hx Previously Healthy: No Psychological History: Depression - Surgical History Surgical History: Yes Surgery Procedure, Year, and Place: nose procedure done when 17 years old. right arm, fracture - Family History Known Family History: Negative: Hypertension, Diabetes - Social History Occupation: Employed Full-time Lives: With Family Alcohol Use: None Alcohol Amount: stopped April Substance Use Type: None Substance Use Comment - Amount & Last Used: snorts wellbutrin, crack pipe noted in bra Smoking Status (MU): Light Every Day Tobacco Smoker Type: Cigarettes Amount Used/How Often: 1/3 ppd smoked off and on for approx 14 years Length of Time of Smoking/Using Tobacco: 10 years Have You Smoked in the Last Year: Yes Household Exposure Type: Cigarettes - Immunization History Most Recent Influenza Vaccination: 02/19/15 Most Recent Tetanus Shot: 07/01/2015 Most Recent Pneumonia Vaccination: never Physical Exam Triage Information Reviewed: Yes Appearance: Well-Appearing, No Pain Distress, Well-Nourished Vital Signs: Initial Vital Signs Temp 98.1 F 10/25/17 10:40 Pulse 90 10/25/17 10:40 Resp 15 10/25/17 10:40 BP 136/90 10/25/17 10:40 Pulse Ox 98 10/25/17 10:40 Vital Signs Reviewed: Yes Eye Exam: Normal Eyes: Positive: Conjunctiva Clear ENT Exam: Normal ENT: Positive: Normal ENT inspection, Hearing grossly normal. Negative: Trismus , Muffled voice, Hoarse voice Dental Exam: Normal Neck exam: Normal Neck: Positive: Supple, Nontender Respiratory Exam: Normal Respiratory: Positive: Chest non-tender, No respiratory distress, No accessory muscle use Cardiovascular Exam: Normal Cardiovascular: Positive: RRR, Pulses Normal, Brisk Capillary Refill Musculoskeletal Exam: Normal Musculoskeletal: Positive: Strength Intact, ROM Intact, No Edema Neurological Exam: Normal Neurological: Positive: Alert Psychological Exam: Normal Psychological: Positive: Normal Response To Family Skin: Positive: Other - laceration right axilla surrounding erythema and tenderness Course/Dx - Course Course Of Treatment: 2 remoaining sutures removed, keflex mild soap and water wash BID,, warm compress, follow with pcp prn - Diagnoses Provider Diagnoses: right axilla wound infection,suture removal Discharge - Sign-Out/Discharge Documenting (check all that apply): Patient Departure - Discharge Plan Condition: Stable Disposition: HOME Prescriptions: Cephalexin CAP* [Keflex CAP*] 500 mg PO QID #28 cap Patient Education Materials: Wound Infection (ED), Warm Compress or Soak (ED) Referrals: Bandar Olsen MD [Primary Care Provider] - If Needed - Billing Disposition and Condition Condition: STABLE Disposition: Home
== END 2017-10-25 11:35 | disposition home or self-care (01) ==
LOC: UCCORT 10:22
DX: S41.111D Laceration without foreign body of right upper arm, subsequent encounter (principal); L08.9 Local infection of the skin and subcutaneous tissue, unspecified; X58.XXXD Exposure to other specified factors, subsequent encounter; Y93.9 Activity, unspecified; F17.210 Nicotine dependence, cigarettes, uncomplicated
CPT/HCPCS: 99212; G0463

== ENCOUNTER 2017-12-24 16:55 | Emergency (ER) | payer OTHER ==
[2017-12-24 18:19] LABS: ABS Basophils 0 10^3/ul (0-0.2); ABS Eosinophils 0.2 10^3/ul (0-0.6); ABS Monocytes 0.7 10^3/ul (0-0.8); ABS Neutrophils 7.2 10^3/ul (1.5-7.7); ABS Nucleated RBC 0 10^3/ul; Eosinophil % 1.9 % (0-6); Hematocrit 39 % (35-47); Mean Corpuscular HGB Conc 34 g/dl (31-36); Mean Corpuscular Hemoglobin 29 pg (27-31); Mean Corpuscular Volume 85 fL (80-97); Mean Platelet Volume 8.5 um3 (7.4-10.4); Nucleated Red Blood Cells % 0.1; Platelet Count 274 10^3/ul (150-450); Red Blood Count 4.56 10^6/ul (4.00-5.40); Red Cell Distribution Width 16 % (10.5-15)
[2017-12-24 18:35] LABS: EGFR Non-African American 56.5 (>60)
--- NOTE | 2017-12-24 19:36 | RAD ---
EXAM: CT Head Without Intravenous Contrast CLINICAL HISTORY: 42 years old, female; Injury or trauma; Fall; Initial encounter; Concussion / head injury; Additional info: Seizure TECHNIQUE: Axial computed tomography images of the head/brain without intravenous contrast. All CT scans at this facility use at least one of these dose optimization techniques: automated exposure control; mA and/or kV adjustment per patient size (includes targeted exams where dose is matched to clinical indication); or iterative reconstruction. COMPARISON: BRAIN WO CT BRAIN WO 08/18/2017 6:51 PM FINDINGS: Brain: No intracranial hemorrhage or extra-axial fluid collection. No evidence of mass effect or midline shift. Fontenot-white matter differentiation is normal. Ventricles: Unremarkable. No ventriculomegaly. Bones/joints: Unremarkable. No acute fracture. Soft tissues: Unremarkable. Sinuses: Unremarkable as visualized. No acute sinusitis. Mastoid air cells: Unremarkable as visualized. No mastoid effusion. IMPRESSION: No acute intracranial pathology.
[2017-12-24 20:46] VITALS: BP 115/61
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
--- NOTE | 2017-12-25 08:19 | RAD ---
INDICATION: Seizure COMPARISON: None. TECHNIQUE: Single AP portable view of the chest was obtained. FINDINGS: Image quality is compromised due to the relative inferiority of a portable chest x-ray. The heart and mediastinum exhibit normal size and contour. The lungs are grossly clear. There is no evidence of a large pleural effusion. Visualized bones are normal for the patient's age. IMPRESSION: No radiographic evidence for acute cardiopulmonary abnormality on this portable chest x-ray.
== END 2017-12-24 20:45 | disposition home or self-care (01) ==
LOC: ED 16:55
DX: F10.10 Alcohol abuse, uncomplicated (principal); F19.10 Other psychoactive substance abuse, uncomplicated; R55 Syncope and collapse; F41.9 Anxiety disorder, unspecified; F32.9 Major depressive disorder, single episode, unspecified; F17.210 Nicotine dependence, cigarettes, uncomplicated
CPT/HCPCS: 36415; 70450; 71045; 80053; 80320; 80329; 83735; 84443; 85025; 99283; G0480

== ENCOUNTER 2018-02-07 16:43 | Emergency (ER) | payer OTHER ==
[2018-02-07] MEDS ORDERED: LORazepam INJ* 2 MG/ML 1 ML VIAL IV PUSH ONE (17:11)
--- NOTE | 2018-02-07 17:12 | ED ---
Altered Mental Status - HPI Summary HPI Summary: The pt is a 42 y/o female presenting to [facility] c/o a seizure s/p an Wellbutrin overdose since today at 16:00 hrs. She snorted 4 pills in her house. The unwitnessed seizure occurred in her apartment elevator and lasted about 2 minutes. She does not remember how she got from her house to the lobby. The pt states that she has been taking the pills to feel high. She denies SI and trauma. - History Of Current Complaint Chief Complaint: EDSeizure Stated Complaint: SEIZURE Time Seen by Provider: 02/07/18 16:53 Hx Obtained From: Patient Hx Last Menstrual Period: 09/25/17 Onset/Duration: Resolved, Suddenly Timing: Lasting Minutes - 2 minutes Aggravating Factor(s): Drug Abuse Associated Signs And Symptoms: Positive: Seizure - Allergies/Home Medications Allergies/Adverse Reactions: Allergies Allergy/AdvReac Type Severity Reaction Status Date / Time No Known Allergies Allergy Verified 12/24/17 17:02 PMH/Surg Hx/FS Hx/Imm Hx Previously Healthy: No Endocrine/Hematology History: Denies: Hx Diabetes, Hx Thyroid Disease Cardiovascular History: Denies: Hx Hypertension Respiratory History: Denies: Hx Asthma, Hx Chronic Obstructive Pulmonary Disease (COPD) GI History: Denies: Hx Ulcer History: Reports: Hx Kidney Stones - x1 no recurrence Sensory History: Reports: Hx Contacts or Glasses - no glasses, just contacts Denies: Hx Hearing Aid Opthamlomology History: Reports: Hx Contacts or Glasses - no glasses, just contacts Psychiatric History: Reports: Hx Anxiety - Abilify, Hx Depression - Cymbalta, Hx Substance Abuse - hx hydrocodone and etoh abuse Denies: Hx Community Mental Health Tx, Hx Suicide Attempt - Cancer History Cancer Type, Location and Year: None reported Hx Chemotherapy: No - Surgical History Surgery Procedure, Year, and Place: nose procedure done when 17 years old. right arm, fracture Hx Anesthesia Reactions: No Infectious Disease History: No Infectious Disease History: Denies: Hx Hepatitis, Hx Human Immunodeficiency Virus (HIV), History Other Infectious Disease, Traveled Outside the [place] in Last 30 Days - Family History Known Family History: Negative: Hypertension, Diabetes - Social History Occupation: Employed Full-time Lives: With Family Alcohol Use: Occasionally Alcohol Amount: april Substance Use Type: Reports: None Substance Use Comment - Amount & Last Used: snorts wellbutrin, crack pipe noted in bra Hx Tobacco Use: Yes Smoking Status (MU): Light Every Day Tobacco Smoker Type: Cigarettes Amount Used/How Often: 1/3 ppd smoked off and on for approx 14 years Length of Time of Smoking/Using Tobacco: 10 years Have You Smoked in the Last Year: Yes Review of Systems Constitutional: Negative - Head trauma , Other - Positive: Wellbutrin snorting Neurological: Other - Positive:Seizure Psychological: Other - Positive: SI All Other Systems Reviewed And Are Negative: Yes Physical Exam - Summary Physical Exam Summary: Appearance: Well-appearing, Well-nourished, lying in bed comfortably Skin: Warm, dry, no obvious rash Eyes: sclera anicteric, no conjunctival pallor ENT: mucous membranes moist, pharynx appears normal Neck: Supple, nontender Respiratory: Clear to auscultation, no signs of respiratory distress Cardiovascular: Normal S1, S2. No murmurs. Normal distal pulses in tibial and radial bilaterally. Abdomen: Soft, nontender, normal active bowel sounds present Musculoskeletal: Normal, Strength/ROM Intact Neurological: A&Ox3, awake and alert, mentation is normal, speech is fluent and appropriate Psychiatric: affect is normal, does not appear anxious or depressed Triage Information Reviewed: Yes Vital Signs On Initial Exam: Initial Vitals Temp Pulse Resp BP Pulse Ox 98.2 F 129 18 126/93 99 02/07/18 16:51 02/07/18 16:51 02/07/18 16:51 02/07/18 16:51 02/07/18 16:51 Vital Signs Reviewed: Yes Diagnostics - Vital Signs Vital Signs Temp Pulse Resp BP Pulse Ox 02/07/18 16:51 98.2 F 129 18 126/93 99 - Laboratory Result Diagrams: 02/07/18 17:37 Lab Statement: Any lab studies that have been ordered have been reviewed, and results considered in the medical decision making process. - EKG 17:44 Cardiac Rate: Tachycardia - 109 bpm Summary of EKG Findings: Normal intervals Altered Mental Statu Course/Dx - Course Course Of Treatment: A 42 year-old F presents to the ED with a CC a seizure s/p an Wellbutrin overdose since today at 16:00 hrs. She snorted 4 pills in her house. The unwitnessed seizure occurred in her apartment elevator and lasted about 2 minutes. She denies SI and trauma. A physical exam is unremarkable. An EKG reveals tachycardia. In the ED course, pt was given Lorazepam 2mg IV and N.s 2000ml IV which improved the symptoms. I discussed rhe care of the pt with Poison control and they recommended monitoring the pt for the next 24 hrs. The patient will be discharged AMA with a final Dx of Bupropion overdose, substance abuse and seizure. Allergies noted. - Diagnoses Provider Diagnoses: Bupropion overdose, Substance abuse, Seizures - Provider Notifications Discussed Care Of Patient With: Poison Control - The staff recommended observing her for the next 24 hrs Time Discussed With Above Provider: 17:11 Discharge - Sign-Out/Discharge Documenting (check all that apply): Patient Departure - DC - Discharge Plan Condition: Guarded Disposition: AGAINST MEDICAL ADVICE Patient Education Materials: Polysubstance Abuse (ED), Generalized Tonic Clonic Seizures (ED) Referrals: [facility] [Outside] [facility] [Outside] Bandar Olsen MD [Primary Care Provider] - 1 Day Additional Instructions: Wellbutrin abuse, as you have found, can be very dangerous. Get help with your addition. - Attestation Statements Document Initiated by Scribe: Yes Documenting Scribe: Amie Turner Provider For Whom Scribe is Documenting (Include Credential): Dr. Salvatore Galloway MD Scribe Attestation: Amie Merino , scribed for Dr. Salvatore Galloway MD on 02/07/18 at 1807.
[2018-02-07] MEDS: NS 0.9% 1000 ML* 2,000 ML IV ONE ×2 (17:26→17:32)
[2018-02-07 18:00] LABS: ABS Basophils 0.1 10^3/ul (0-0.2); ABS Eosinophils 0.2 10^3/ul (0-0.6); ABS Lymphocytes 1.3 10^3/ul (1.0-4.8); ABS Monocytes 0.7 10^3/ul (0-0.8); ABS Neutrophils 7.3 10^3/ul (1.5-7.7); ABS Nucleated RBC 0 10^3/ul; Eosinophil % 2.1 % (0-6); Hematocrit 40 % (35-47); Hemoglobin 13.6 g/dl (12.0-16.0); Lymphocyte % 13.8 % (25-47); Mean Corpuscular HGB Conc 34 g/dl (31-36); Mean Corpuscular Hemoglobin 29 pg (27-31); Mean Corpuscular Volume 86 fL (80-97); Mean Platelet Volume 8.9 fL (7.4-10.4); Nucleated Red Blood Cells % 0.2; Platelet Count 283 10^3/ul (150-450); Red Blood Count 4.69 10^6/ul (4.00-5.40); Red Cell Distribution Width 15 % (10.5-15); White Blood Count 9.5 10^3/ul (3.5-10.8)
[2018-02-07 18:17] LABS: EGFR Non-African American 60.4 (>60)
[2018-02-07 21:06] VITALS: BP 140/78
== END 2018-02-07 20:00 | disposition left against medical advice (07) ==
LOC: ED 16:43
DX: T43.291A Poisoning by other antidepressants, accidental (unintentional), initial encounter (principal); G40.909 Epilepsy, unspecified, not intractable, without status epilepticus; F19.10 Other psychoactive substance abuse, uncomplicated; Y92.9 Unspecified place or not applicable; F17.210 Nicotine dependence, cigarettes, uncomplicated
CPT/HCPCS: 36415; 80053; 84702; 85025; 93005; 96361; 96374; 99282; J2060

== ENCOUNTER 2019-05-31 17:14 | Emergency (ER) | payer OTHER | END 2019-05-31 18:07 | disposition left against medical advice (07) | LOC: UCCORT 17:14 | DX: Z53.21 Procedure and treatment not carried out due to patient leaving prior to being seen by health care provider (principal) ==

== ENCOUNTER 2019-06-03 10:35 | Emergency (ER) | payer OTHER | END 2019-06-03 11:34 | disposition left against medical advice (07) | LOC: UCCORT 10:35 | DX: Z53.21 Procedure and treatment not carried out due to patient leaving prior to being seen by health care provider (principal) ==

== ENCOUNTER 2019-06-05 14:08 | Emergency (ER) | payer OTHER ==
--- NOTE | 2019-06-05 15:48 | UC ---
FLU HPI - HPI Summary HPI Summary: 43yo female presenting with "flu symptoms" last week that have mostly resolved. States she has a cough that has been present "for months" but since getting sick last week she has felt "short of breath almost constantly." Also notes wheezing. Denies n/v. Denies fever and chills since last week. Denies taking anything for symptom relief. Patient is smoker, states 5-6 cigarettes daily " for many many years." - History of Current Complaint Stated Complaint: COUGH/FLU SYMP Hx Obtained From: Patient Hx Last Menstrual Period: 09/25/17 - Allergy/Home Medications Allergies/Adverse Reactions: Allergies Allergy/AdvReac Type Severity Reaction Status Date / Time No Known Allergies Allergy Verified 06/05/19 15:58 Home Medications: Home Medications DULoxetine DR CAP* [Cymbalta CAP*] 60 mg PO QAM 09/23/17 [History Confirmed 05/25] ARIPiprazole TAB* [Abilify TAB*] 5 mg PO QAM 09/27/17 [History Confirmed ] Gabapentin CAP(*) [Neurontin 400 mg CAP(*)] 800 mg PO QID 12/24/17 [History Confirmed 06/05/19] Albuterol HFA INHALER* [Ventolin HFA Inhaler*] 1 - 2 puff INH Q6H PRN #1 mdi 05/25 [Rx] predniSONE 20 mg TAB [Deltasone 20 MG TAB*] 40 mg PO DAILY #10 tab 06/05/19 [Rx] PMH/Surg Hx/FS Hx/Imm Hx - Surgical History Surgical History: Yes Surgery Procedure, Year, and Place: nose procedure done when 17 years old. right arm, fracture - Family History Known Family History: Negative: Hypertension, Diabetes - Social History Alcohol Use: Occasionally Alcohol Amount: stopped April Substance Use Type: None Substance Use Comment - Amount & Last Used: snorts wellbutrin, crack pipe noted in bra Smoking Status (MU): Light Every Day Tobacco Smoker Type: Cigarettes Amount Used/How Often: 1/3 ppd smoked off and on for approx 14 years Length of Time of Smoking/Using Tobacco: 10 years Have You Smoked in the Last Year: Yes Household Exposure Type: Cigarettes - Immunization History Most Recent Influenza Vaccination: 02/19/15 Most Recent Tetanus Shot: 07/01/2015 Most Recent Pneumonia Vaccination: never Review of Systems All Other Systems Reviewed And Are Negative: Yes Constitutional: Positive: Negative ENT: Positive: Negative Respiratory: Positive: Shortness Of Breath, Cough Cardiovascular: Positive: Negative Gastrointestinal: Positive: Negative Musculoskeletal: Positive: Negative Neurological/Mental Status: Positive: Negative Physical Exam - Summary Physical Exam Summary: Vital Signs Reviewed: Yes A+Ox3, no distress, well-appearing Eyes: Conjunctiva Clear ENT: Hearing grossly normal, TM x 2 clear, moist, uvula midline, no exudate, no erythema Neck: Positive: Supple Respiratory: Positive: No respiratory distress, No accessory muscle use + diffuse expiratory wheezing throughout lung coker Cardiovascular: tachycardia, regular rhythm nl s1, s2 no m/r Musculoskeletal Exam: MILLS x 4 without difficulty Neurological: Positive: Alert Psychological: Positive: age appropriate behavior Skin: Positive: no rash, no ecchymosis Vital Signs: Vital Signs (72 hours) 06/05/19 15:59 Temperature 96 F Pulse Rate 112 Respiratory 12 Rate Blood Pressure 111/74 (mmHg) O2 Sat by Pulse 97 Oximetry Lab Results 06/05/19 Range/Units 16:38 Influenza A (Rapid) Negative (Negative) Influenza B (Rapid) Negative (Negative) Diagnostics - Radiology CXR Radiology Interpretation Completed By: Radiologist Summary of Radiographic Findings: IMPRESSION: NO ACTIVE CARDIOPULMONARY DISEASE. Flu Course/Dx - Course Course Of Treatment: Negative rapid flu. CXR normal. Discussed results with patient and educated on acute bronchitis. I treated the patient with prednisone and albuterol inhaler after discussing common side effects of medications. Patient also voiced desire to quit smoking. I counseled on smoking cessation and encouraged patient to follow up with pcp to discuss options for quitting. Instructed to follow up with pcp as well if symptoms persist. Patient voiced understanding and agreed with treatment plan. - Differential Dx/Diagnosis Provider Diagnosis: Acute bronchitis Discharge ED - Sign-Out/Discharge Documenting (check all that apply): Patient Departure All imaging exams completed and their final reports reviewed: Yes - Discharge Plan Condition: Stable Disposition: HOME Prescriptions: Albuterol HFA INHALER* [Ventolin HFA Inhaler*] 1 - 2 puff INH Q6H PRN #1 mdi PRN Reason: Sob/Wheezing predniSONE 20 mg TAB [Deltasone 20 MG TAB*] 40 mg PO DAILY #10 tab Patient Education Materials: How to Stop Smoking (ED), Acute Bronchitis (ED) Forms: *Work Release Referrals: Bandar Olsen MD [Primary Care Provider] - If Needed Additional Instructions: Take prednisone as prescribed. Use the inhaler as needed for shortness of breath. Refrain from smoking while symptoms are present. Increase fluids. Follow up with your primary care provider if symptoms persist. - Billing Disposition and Condition Condition: STABLE Disposition: Home - Attestation Statements Provider Attestation: This patient was not seen by me. I was available for consult. Chart reviewed. HAYLEY
[2019-06-05 16:09] VITALS: BP 111/74
[2019-06-05 16:49] LABS: Influenza A Molecular Negative (Negative); Influenza B Molecular Negative (Negative)
== END 2019-06-05 17:14 | disposition home or self-care (01) ==
LOC: UCCORT 14:08
DX: J20.9 Acute bronchitis, unspecified (principal); F17.210 Nicotine dependence, cigarettes, uncomplicated
CPT/HCPCS: 71046; 99212; G0463